=== PATIENT | female | born 1985 | race Two or more races ===

== ENCOUNTER 2016-12-06 19:34 | Observation (INO) | payer MEDICAID | END 2016-12-06 21:53 | disposition home or self-care (01) | DRG 566 | LOC: LDRP 19:34 | PROVIDERS: ADMIT Specialist; ATTEND Specialist | DX: O36.8130 Decreased fetal movements, third trimester, not applicable or unspecified (principal); Z3A.34 34 weeks gestation of pregnancy | CPT/HCPCS: 59025; 76818; 81002; G0378 ==

== ENCOUNTER 2016-12-28 22:25 | Observation (INO) | payer MEDICAID ==
[2016-12-28 23:04] LABS: Urine RBC None Seen /hpf (0 - 4)
[2016-12-28] MEDS ORDERED: ACETAMINOPHEN 325 MG TAB PO ONE ×2 (23:15→23:25)
[2016-12-28 23:22] LABS: Urine Bilirubin Negative (Negative); Urine Blood Negative /uL (Negative); Urine Color Yellow (Yellow); Urine Glucose Normal (Normal); Urine Nitrite Negative (Negative); Urine Squamous Epithelial Cell FEW /hpf (<5); Urine Urobilinogen Normal (Negative)
[2016-12-28 23:29] LABS: Urine Ketone 1+ (Negative)
== END 2016-12-29 00:24 | disposition home or self-care (01) | DRG 566 ==
LOC: LDRP 22:25
PROVIDERS: ADMIT Obstetrics & Gynecology; ATTEND Obstetrics & Gynecology
DX: O26.893 Other specified pregnancy related conditions, third trimester (principal); O99.333 Smoking (tobacco) complicating pregnancy, third trimester; M54.9 Dorsalgia, unspecified; Z3A.37 37 weeks gestation of pregnancy
CPT/HCPCS: 36415; 59025; 76805; 81001; 86592; 86703; 86762; 86850; 86900; 86901; 87340; G0378; G0434

== ENCOUNTER 2018-10-17 09:18 | Emergency (ER) | payer MEDICAID ==
[~2018-10-17] VITALS: Ht 167.6 cm; Wt 90.7 kg
[2018-10-17 09:30] VITALS: BP 121/75
[2018-10-17] MEDS ORDERED: LIDOCAINE W/ EPINEPHRINE 1 % INJ 30ML ONE (10:24)
[2018-10-17] MEDS ORDERED: AZITHROMYCIN 250 MG TAB PO ONE (10:30)
[2018-10-17] MEDS ORDERED: cefTRIAXone SOD 1,000 MG VL IM ONE (10:30)
== END 2018-10-17 10:51 | disposition home or self-care (01) ==
LOC: ER 09:18
DX: N89.8 Other specified noninflammatory disorders of vagina (principal); Z20.2 Contact with and (suspected) exposure to infections with a predominantly sexual mode of transmission
CPT/HCPCS: 96372; 99283; J0696; J2001